=== PATIENT | female | born 1965 | race Two or more races ===

== ENCOUNTER 2018-11-02 10:57 | Inpatient (IN) | payer MEDICAID, OTHER ==
[~2018-11-02] VITALS: Ht 170.2 cm; Wt 73.8 kg
[2018-11-02] MEDS ORDERED: SODIUM CHLORIDE 0.9% 1,000 ML IV ONE (11:16)
[2018-11-02 11:55] LABS: Basophils # (auto) 0 uL; Basophils % (auto) 0.6 % (0.0-2.0); Eosinophils # (auto) 0.1 uL; Eosinophils % (auto) 1.7 % (0.0-7.0); Hematocrit 36.9 % (36.0-46.0); Hemoglobin 12.5 g/dL (12.2-16.2); Lymphocytes # (auto) 1.9 uL; Lymphocytes % (auto) 34.7 % (10.0-50.0); Mean Corpuscular Hgb Conc. 33.9 g/dL (32.0-36.0); Mean Corpuscular Volume 88.5 fL (80.0-100.0); Monocytes # (auto) 0.3 uL; Monocytes % (auto) 6.3 % (0.0-12.0); Neutrophils # (auto) 3.1 uL; Neutrophils % (auto) 56.7 % (37.0-80.0); Nucleated Red Blood Cells % 0.1 %; Platelet Count (auto) 285 10^3/uL (140-450); Red Blood Cells 4.18 10^6/uL (4.0-5.20); Red Cell Distribution Width 12.7 % (11.8-14.3); White Blood Cell 5.5 10^3/uL (4.4-10.8)
[2018-11-02 12:18] LABS: Albumin 3.9 g/dL (3.4-5.0); Anion Gap 9 (5-15); Blood Urea Nitrogen 12 mg/dL (7-18); Calcium 8.8 mg/dL (8.5-10.1); Carbon Dioxide 26 mmol/L (21-32); Chloride 109 mmol/L (98-107); Glucose 108 mg/dL (74-106); Magnesium 2.2 mg/dL (1.6-2.6); Potassium 3.6 mmol/L (3.5-5.1); Sodium 144 mmol/L (136-145)
[2018-11-02 12:24] LABS: Alanine Aminotransferase 20 U/L (13-56); Alkaline Phosphatase 83 U/L (45-117); Aspartate Aminotransferase 12 U/L (15-37); BUN/Creatinine Ratio 15.8; Bilirubin, Total 0.3 mg/dL (0.2-1.0); GFR African American 102 mL/min; GFR Non-African American 85 mL/min; Total Protein 7.8 g/dL (6.4-8.2)
[2018-11-02 15:34] LABS: Urine WBC None Seen /hpf (0 - 5)
[2018-11-02] MEDS ORDERED: TEMAZEPAM 15 MG CAP PO PRN (16:00)
[2018-11-02] MEDS ORDERED: MORPHINE SULF INJ 2 MG/ML SYRINGE 1ML IV PRN (16:00)
[2018-11-02] MEDS ORDERED: PROMETHAZINE HCL 25 MG/ML 1ML IV PRN (16:00)
[2018-11-02] MEDS ORDERED: NITROGLYCERIN 0.4 MG SL TAB SL PRN (16:00)
[2018-11-02 16:08] LABS: Urine Bacteria NONE SEEN /hpf (None Seen); Urine Blood Negative /uL (Negative); Urine Specific Gravity 1.005 (1.001-1.035)
[2018-11-02] MEDS: SODIUM CHLORIDE 0.9% 1,000 ML IV SCH (16:23)
[2018-11-02 17:07] LABS: Amylase 33 U/L (25-115); Lipase 102 U/L (73-393)
--- NOTE | 2018-11-02 20:01 | NUR ---
OPENING NOTES RECEIVED PT FROM ED WITH NO SBAR HANDOFF REPORT. PT IS ALERT, AWAKE AND ORIENTATED X 4 WITH NO S/S OF DISTRESS NOR PAIN. NO S/S OF SOB. BED BRAKES ARE LOCKED AND CALL LIGHT IS WITH IN REACH. BED IS IN LOWEST POSITION AND SIDE RAILS ARE UP X 2. HOB IS 30 DEGREES. WILL MONITOR Q 1HR.
[2018-11-02 20:10] VITALS: BP 124/63
[2018-11-02] MEDS ORDERED: LEVO100T8 PO (20:37)
[2018-11-02 22:00] VITALS: BP 124/63
[2018-11-02] MEDS: FAMOTIDINE 20 MG TAB PO SCH (22:51)
[2018-11-02] MEDS: traMADol HCL 50 MG TAB PO PRN (22:52)
[2018-11-03] MEDS: SODIUM CHLORIDE 0.9% 1,000 ML IV SCH ×2 (04:31→12:00)
[2018-11-03 05:00] VITALS: BP 109/58
--- NOTE | 2018-11-03 07:37 | NUR ---
closing notes endorsed care to day shift nurseJosie.
[2018-11-03 08:30] VITALS: BP 109/68
[2018-11-03] MEDS: ASPirin 81 mg TAB PO SCH (09:52)
[2018-11-03] MEDS: FAMOTIDINE 20 MG TAB PO SCH ×2 (09:52→21:24)
[2018-11-03 11:48] LABS: Alcohol, Urine < 3.0 mg/dL (0-5); Amphetamine Screen, Urine NEGATIVE (NEGATIVE); Barbiturate Scree,Urine NEGATIVE (NEGATIVE); Benzodiazephine Screen, Urine NEGATIVE (NEGATIVE); Cannabinoid Screen, Urine NEGATIVE (NEGATIVE); Cocaine Screen, Urine NEGATIVE (NEGATIVE); Opiate Scree,Urine NEGATIVE (NEGATIVE); Phencyclidine Screen, Urine NEGATIVE (NEGATIVE)
[2018-11-03 12:30] VITALS: BP 123/63
[2018-11-03] MEDS ORDERED: ADENOSINE 60 MG in GIVE UN-DILUTED 0 ML IV STA (13:24)
[2018-11-03 17:45] LABS: INR 1.01 (0.9-1.15); Partial Thromboplastin Time 25.4 sec (23.64-32.05)
[2018-11-03 18:03] VITALS: BP 131/64
[2018-11-03] MEDS: ACETAMINOPHEN 500 MG TAB PO PRN (18:26)
--- NOTE | 2018-11-03 19:30 | NUR ---
REPORT GIVEN TO GENEVA BARRIENTOS RN PT RESTING IN BED. ALERT AND ORIENTED. PT IS AWARE OF CARDIAC CATH PROCEDURE FOR TOMORROW. NO DISTRESS NOTED. DENIES PAIN AT THIS TIME
--- NOTE | 2018-11-03 19:34 | NUR ---
OPENING NOTES RECEIVED REPORT FROM DAY SHIFT NURSE. PT IS ALERT, AWAKE AND ORIENTATED X 4 WITH NO S/S OF DISTRESS NOR PAIN. NO S/S OF SOB. BED BRAKES ARE LOCKED AND CALL LIGHT IS WITH IN REACH. BED IS IN LOWEST POSITION AND SIDE RAILS ARE UP X 2. HOB IS 30 DEGREES. WILL MONITOR Q 1HR.
[2018-11-03] MEDS: traMADol HCL 50 MG TAB PO PRN (21:24)
--- NOTE | 2018-11-03 22:48 | NUR ---
CONSENT PT SIGNED INFORM CONSENT FOR CARDIAC CATH TOMORROW. CONSENT FORM IN [facility].
[2018-11-03 23:20] VITALS: BP 124/70
[2018-11-04] VITALS (9 sets, daily range): BP systolic 108–128; BP diastolic 52–72
--- NOTE | 2018-11-04 | NUR ---
PT NPO FOR TOMORROW'S PROCEDURE.
[2018-11-04] MEDS: SODIUM CHLORIDE 0.9% 1,000 ML IV SCH ×3 (02:35→18:00)
[2018-11-04 05:04] LABS: Basophils # (auto) 0 uL; Basophils % (auto) 0.7 % (0.0-2.0); Eosinophils # (auto) 0.1 uL; Eosinophils % (auto) 3.5 % (0.0-7.0); Hematocrit 33.9 % (36.0-46.0); Hemoglobin 11.4 g/dL (12.2-16.2); Lymphocytes % (auto) 49.1 % (10.0-50.0); Mean Corpuscular Hemoglobin 30.1 pg (28.0-32.0); Mean Corpuscular Hgb Conc. 33.7 g/dL (32.0-36.0); Mean Corpuscular Volume 89.4 fL (80.0-100.0); Monocytes # (auto) 0.3 uL; Monocytes % (auto) 6.1 % (0.0-12.0); Neutrophils # (auto) 1.7 uL; Neutrophils % (auto) 40.6 % (37.0-80.0); Nucleated Red Blood Cells % 0.2 %; Platelet Count (auto) 234 10^3/uL (140-450); Red Cell Distribution Width 12.4 % (11.8-14.3); White Blood Cell 4.1 10^3/uL (4.4-10.8)
[2018-11-04 05:20] LABS: INR 1.01 (0.9-1.15); Partial Thromboplastin Time 26.3 sec (23.64-32.05)
[2018-11-04 05:28] LABS: BUN/Creatinine Ratio 8.7; Calcium 8.4 mg/dL (8.5-10.1); Potassium 4.5 mmol/L (3.5-5.1)
--- NOTE | 2018-11-04 07:22 | NUR ---
Opening Shift Note Assumed care of patient, awake and alert. No S/S of distress/SOB or pain. Instructed on POC and to call for assist PRN, will continue to monitor for changes Q1hr and PRN.
--- NOTE | 2018-11-04 07:36 | NUR ---
CLOSING NOTES ENDORSED CARE TO DAY SHIFT NURSEKORY.
[2018-11-04] MEDS: FAMOTIDINE 20 MG TAB PO SCH (09:36)
[2018-11-04] MEDS: ASPirin 81 mg TAB PO SCH (10:00)
[2018-11-04] MEDS ORDERED: fentaNYL CITRATE 100 MCG/2 ML VL ONE ×2 (10:54→13:33)
[2018-11-04] MEDS ORDERED: MIDAZOLAM HCL 1MG/1ML-2 ML VIAL ONE ×2 (10:54→13:33)
--- NOTE | 2018-11-04 12:29 | NUR ---
Nutrition Assessment Notes Please see attached link for complete assessment Est. Needs based on BW (73 kg): 0926-2731 kcal (23-25 kcal/kgBW), 73-80 gms pro (1.0-1.1 gms/kgBW). Will continue to monitor pertinent labs and reassess nutrient need prn Addendum: 11/04/18 at [address] Amended: Links added.
--- NOTE | 2018-11-04 12:30 | NUR ---
Unable to obtain vitals. Pt not on the floor at this time .
[2018-11-04] MEDS ORDERED: ANGIOMAX 250 MG VIAL IV ONE (13:32)
[2018-11-04] MEDS ORDERED: SODIUM CHL 0.9% 0 ML ONE (13:33)
[2018-11-04] MEDS ORDERED: LIDOCAINE 2%HCL (LOCAL ANESTH.) INJ 20ML MDV ONE (13:43)
[2018-11-04] MEDS ORDERED: IOHEXOL 350 MG/ML 100ML IJ ONE (13:43)
[2018-11-04] MEDS: ACETAMINOPHEN 500 MG TAB PO PRN (16:49)
--- NOTE | 2018-11-04 18:02 | NUR ---
Dr. López at bedside assessing groin. Patient complains of 7/10 pain in groin and during ambulation. Per MD, no abnormalities noted and proceed with POC.
[2018-11-04] MEDS ORDERED: KETOROLAC TROMETH 15 mg/ml 1ML VL IV ONE (18:15)
--- NOTE | 2018-11-04 19:22 | NUR ---
Change of shift given to operations supervisor 2nd shift RN. No distress noted.
--- NOTE | 2018-11-04 20:50 | NUR ---
PATIENT WAS DISCHARGED WITH FAMILY. SHE WAS ABLE TO WALK HERSELF DOWNSTAIRS. ALL BELONGINGS WERE TAKEN. IV AND TELEBOX WERE REMOVED. ALL PAPERWORK AND QUESTIONS WERE REVIEWED WITH PATIENT.
== END 2018-11-04 20:50 | disposition home or self-care (01) | DRG 192 ==
LOC: EDBD 10:57 → ER 11:01 → TELE 11:02 → TELE-CENTR 19:54
PROVIDERS: ADMIT Internal Medicine; ATTEND Internal Medicine Pulmonary Disease
PROC: 4A023N7 Measurement of Cardiac Sampling and Pressure, Left Heart, Percutaneous Approach (ICD-10-PCS; principal; 2018-11-04)
PROC: B2111ZZ Fluoroscopy of Multiple Coronary Arteries using Low Osmolar Contrast (ICD-10-PCS; 2018-11-04)
PROC: B2151ZZ Fluoroscopy of Left Heart using Low Osmolar Contrast (ICD-10-PCS; 2018-11-04)
DX: R00.1 Bradycardia, unspecified (principal); E87.8 Other disorders of electrolyte and fluid balance, not elsewhere classified; K76.0 Fatty (change of) liver, not elsewhere classified; M94.0 Chondrocostal junction syndrome [Tietze]; E03.9 Hypothyroidism, unspecified; E11.9 Type 2 diabetes mellitus without complications; F32.9 Major depressive disorder, single episode, unspecified; Z82.3 Family history of stroke; Z82.49 Family history of ischemic heart disease and other diseases of the circulatory system; Z83.3 Family history of diabetes mellitus; Z88.0 Allergy status to penicillin; Z79.899 Other long term (current) drug therapy
CPT/HCPCS: 36415; 70450; 74176; 80048; 80053; 80307; 81001; 82150; 82533; 82550; 83690; 83735; 84443; 84484; 84702; 85025; 85379; 85610; 85730; 86850; 86900; 86901; 87804; 93005; 93017; 93306; 93458; 94761; 96360; G0378; J0153; J2250

== ENCOUNTER 2020-02-17 09:43 | Emergency (ER) | payer MEDICAID, OTHER ==
[~2020-02-17] VITALS: Ht 165.1 cm; Wt 68.0 kg
[~2020-02-17 09:43] MED LIST: LEVO100T8 PO
[2020-02-17] MEDS ORDERED: TETANUS-DIPTH-ACEL PERTUSSIS 0.5ML SYR Tdap IM ONE (11:45)
[2020-02-17] MEDS ORDERED: ONDANSETRON HCL 4 MG/2 ML VIAL IV ONE (11:45)
[2020-02-17] MEDS ORDERED: KETOROLAC TROMETH 30 MG/ML 1ML VIAL IV ONE (11:45)
[2020-02-17 13:32] VITALS: BP 110/55
== END 2020-02-17 13:45 | disposition home or self-care (01) ==
LOC: EDBD 09:43 → ER 09:43
DX: S16.1XXA Strain of muscle, fascia and tendon at neck level, initial encounter (principal); S00.03XA Contusion of scalp, initial encounter; W01.0XXA Fall on same level from slipping, tripping and stumbling without subsequent striking against object, initial encounter; Y93.89 Activity, other specified; Y92.89 Other specified places as the place of occurrence of the external cause; Y99.8 Other external cause status
CPT/HCPCS: 70450; 72125; 90471; 90715; 96374; 96375; 99285; J1885; J2405

== ENCOUNTER 2021-02-27 13:13 | Emergency (ER) | payer MEDICAID, OTHER ==
[~2021-02-27] VITALS: Ht 170.2 cm; Wt 68.5 kg
[2021-02-27 14:45] LABS: Basophils # (auto) 0 10 ^3/uL (0-0.2); Basophils % (auto) 0.3 % (0.0-2.0); Eosinophils # (auto) 0 10 ^3/uL (0-0.8); Hematocrit 35.3 % (36.0-46.0); Hemoglobin 11.8 g/dL (12.2-16.2); Lymphocytes # (auto) 1.5 10 ^3/uL (0.4-5.4); Lymphocytes % (auto) 38.3 % (10.0-50.0); Mean Corpuscular Hemoglobin 29.5 pg (28.0-32.0); Mean Corpuscular Hgb Conc. 33.4 g/dL (32.0-36.0); Mean Corpuscular Volume 88.4 fL (80.0-100.0); Monocytes # (auto) 0.3 10 ^3/uL (0-1.3); Monocytes % (auto) 6.7 % (0.0-12.0); Neutrophils # (auto) 2.1 10 ^3/uL (1.6-8.6); Neutrophils % (auto) 54.7 % (37.0-80.0); Red Blood Cells 3.99 10^6/uL (4.0-5.20); Red Cell Distribution Width 12.7 % (11.8-14.3); White Blood Cell 3.8 10^3/uL (4.4-10.8)
[2021-02-27 15:08] LABS: BUN/Creatinine Ratio 15.3; Calcium 9.1 mg/dL (8.5-10.1); Potassium 3.8 mmol/L (3.5-5.1)
[2021-02-27 15:25] LABS: Bilirubin, Total 0.4 mg/dL (0.2-1.0)
[2021-02-27] MEDS ORDERED: ALPRAZolam 0.5 MG TAB PO ONE (15:45)
[2021-02-27 19:47] VITALS: BP 111/60
== END 2021-02-27 20:07 | disposition left against medical advice (07) ==
LOC: ER 13:13
DX: R07.89 Other chest pain (principal); Z79.899 Other long term (current) drug therapy; Z88.0 Allergy status to penicillin
CPT/HCPCS: 36415; 71046; 80053; 84443; 84484; 85025; 93005